=== PATIENT | male | born 1935 | race Caucasian/White ===

== ENCOUNTER 2018-11-29 16:19 | Inpatient (IN) | payer MEDICARE, MEDICAID ==
[~2018-11-29] VITALS: Ht 180.3 cm; Wt 0.5 kg
[~2018-11-29 16:19] MED LIST: LEXAPRO10 MG ORAL; RESTORIL7.5 MG ORAL; SINEMET 10-1001 EACH ORAL
[2018-11-29 19:03] LABS: BASOPHILS % (AUTO) 1.2 % (0.0-2.0); EOSINOPHILS % (AUTO) 1.1 % (0.0-3.0); HEMATOCRIT 37.1 % (42.0-52.0); HEMOGLOBIN 12.3 G/DL (14.2-18.0); LYMPHOCYTES % (AUTO) 17.1 % (20.0-45.0); MEAN CORPUSCULAR VOLUME 91 FL (80-99); MONOCYTES % (AUTO) 6.8 % (1.0-10.0); NEUTROPHILS % (AUTO) 73.8 % (45.0-75.0); PLATELET COUNT 161 K/UL (150-450); RED CELL DISTRIBUTION WIDTH 11.4 % (11.6-14.8)
[2018-11-29] MEDS: Levodopa/Carbidopa 25/100 tab ORAL SCH (19:21)
[2018-11-29 19:33] LABS: ALANINE AMINOTRANSFERASE 10 U/L (12-78); ALBUMIN 3.8 G/DL (3.4-5.0); ALBUMIN/GLOBULIN RATIO 1.4 (1.0-2.7); ALKALINE PHOSPHATASE 657 U/L (46-116); ANION GAP 8 mmol/L (5-15); ASPARTATE AMINO TRANSFERASE 19 U/L (15-37); BILIRUBIN,TOTAL 0.6 MG/DL (0.2-1.0); BLOOD UREA NITROGEN 24 mg/dL (7-18); CALCIUM 9.3 MG/DL (8.5-10.1); CARBON DIOXIDE 30 MMOL/L (21-32); CHLORIDE 106 MMOL/L (98-107); CREATININE 1.1 MG/DL (0.55-1.30); SODIUM 143 MMOL/L (136-145)
[2018-11-29 20:00] VITALS: BP 137/58
[2018-11-29] MEDS ORDERED: Atorvastatin 80mg tab ORAL SCH (21:00)
[2018-11-29] MEDS: Tamsulosin 0.4mg cap ORAL SCH (21:09)
[2018-11-30] VITALS: BP 158/75
[2018-11-30] MEDS ORDERED: LISINOPRIL20 MG ORAL (00:56)
[2018-11-30] MEDS ORDERED: LIPITOR20 MG ORAL (00:56)
[2018-11-30] MEDS ORDERED: LEXAPRO20 MG ORAL (00:56)
[2018-11-30] MEDS ORDERED: TEMAZEPAM30 MG ORAL (00:56)
[2018-11-30] MEDS ORDERED: BICALUTAMIDE50 MG ORAL (00:56)
[2018-11-30] MEDS ORDERED: TAMSULOSIN HCL0.4 MG ORAL (00:56)
[2018-11-30] MEDS ORDERED: SINEMET 25-1001 EAC1 ORAL (00:56)
--- NOTE | 2018-11-30 01:00 | Consultation ---
DATE OF CONSULTATION: 11/29/2018 CONSULTING PHYSICIAN: Jairon Cervantes M.D. REFERRING PHYSICIAN: Kamlesh Ribeiro M.D. REASON FOR CONSULTATION: Dehydration and hypotension in the setting of ischemic cardiomyopathy. HISTORY OF PRESENT ILLNESS: This is an 83-year-old male. He has a known history of ischemic heart disease with prior myocardial infarctions and coronary stents. He also has been declining in his health due to Parkinson disease. He was noted to have significant weight loss, very low blood pressure in the office yesterday, dizziness and unsteady gait. [id number] was contacted and evaluated the patient agreeing that acute care was indicated as the patient was unsafe at home. The patient has not had chest pain or shortness of breath, but has been dizzy and lightheaded. He admits to poor appetite and oral intake. He has had frequent falls. PAST MEDICAL HISTORY: Parkinson's disease, metastatic prostate cancer, hyperlipidemia, coronary artery disease, history of myocardial infarction, history of coronary stents, history of head trauma and subarachnoid bleed, cerebrovascular disease with hx of CVA, insomnia, pernicious anemia with B12 deficiency, and sinus node disease with bradycardia. ALLERGIES: Penicillin. MEDICATIONS: Reviewed and reconciled. SOCIAL HISTORY: He is an alcoholic, but has not had a drink for over 30 years. There is a very distant history of smoking. No history of substance abuse. REVIEW OF SYSTEMS: His most recent LDL was less than 100. There is no history of seizure or stroke. His Parkinson's has progressed limiting his function. There is no history of thyroid disorder or diabetes. His most recent echocardiogram revealed normal ejection fraction with concentric hypertrophy and mild degenerative valve disease. There is no history of abnormal blood clotting or asthma. He is hard of hearing. There is no history of visual disturbance. He has prostate cancer and he is on Lupron. His PSA has been 0 on this therapy. He does have diffuse bony mets and has chronically elevated alkaline phosphatase level. PHYSICAL EXAMINATION: VITAL SIGNS: Blood pressure at the doctor's office was 87/50, presently 137/58, heart rate 59, and respiratory rate 20. Afebrile. GENERAL: Temporal wasting. HEENT: Pale conjunctivae. Oropharynx clear. Mucous membranes dry. NECK: Supple. Jugular venous pressure normal. LUNGS: Clear. CARDIAC: Regular rhythm and rate. Normal S1, S2 with a 1/6 systolic apical murmur. ABDOMEN: Soft and nontender. EXTREMITIES: No edema. NEUROLOGIC: Reveals significant tremor, masklike facies and unsteady gait. LABORATORY DATA: Labs reviewed. IMPRESSION: 1. Hypovolemia. 2. Dehydration. 3. Orthostatic hypotension. 4. Parkinson's exacerbation. 5. Unsteady gait. 6. Recurring falls. 7. Sinus bradycardia. 8. Ischemic cardiomyopathy. 9. Chronic stable angina. 10. Prostate cancer. PLAN: 1. Continue anti-platelet therapy. 2. Check lipid panel and CK. 3. Cautiously hydrate. 4. Nutritional support. 5. Physical and occupational therapy assessment. 6. CAT scan of the brain to evaluate for possible bleed as a result of recurring falls. 7. Presently no indication for permanent pacemaker. Jairon Cervantes M.D. DR: ANTONIA JOB#: [id number] CC: LANDON
[2018-11-30 04:00] VITALS: BP 161/70
[2018-11-30 08:00] VITALS: BP 139/66
[2018-11-30] MEDS: Citalopram Hydrobromide 10mg Tab ORAL SCH (08:50)
[2018-11-30] MEDS: Levodopa/Carbidopa 25/100 tab ORAL SCH ×3 (08:50→18:47)
[2018-11-30 09:37] LABS: ANION GAP 8 mmol/L (5-15); BLOOD UREA NITROGEN 25 mg/dL (7-18); CALCIUM 9.1 MG/DL (8.5-10.1); CARBON DIOXIDE 26 MMOL/L (21-32); CHLORIDE 107 MMOL/L (98-107); CHOLESTEROL 120 MG/DL (< 200); CKMB 1.2 NG/ML (0.0-3.6); HDL CHOLESTEROL 60 MG/DL (40-60); POTASSIUM 4.3 MMOL/L (3.5-5.1); SODIUM 141 MMOL/L (136-145); TRIGLYCERIDES 53 MG/DL (30-150)
[2018-11-30 12:00] VITALS: BP 153/72
--- NOTE | 2018-11-30 13:04 | Diagnostic Imaging Report ---
Indication: Trauma, dizziness Technique: spiral acquisitions obtained through the brain. Angled axial and coronal 5 x 5 mm slices were reconstructed. No IV contrast utilized. Radiation dose was minimized using automated exposure control Total dose length product 1442.94 mGycm. CTDIvol(s) 70.38 mGy Comparison: 06/25/2018 FINDINGS: No acute hemorrhage or edema. No mass effect or midline shift. There is age-related enlargement of the ventricles and extra axial CSF spaces. There is periventricular deep white matter ischemic change. Normal john-white differentiation. There is a lacunar infarct in the left anterior basal ganglia region which may have been due to slight extent evident previously but is much larger. Other old bilateral basal ganglia lacunar infarcts are stable. Visualized orbits are unremarkable. There is minimal sinus mucosal disease. The mastoids are clear. Intact calvarium. Previously demonstrated left convexity subarachnoid blood, anterior interhemispheric subdural blood, and high right parietal cortical hemorrhage are no longer evident IMPRESSION: Chronic and age-related changes. Negative for acute intracranial bleed or mass effect Bilateral basal ganglia lacunar infarcts, one of which is new or increased from previous exam of May 2016 but not acute Previously reported intracranial hemorrhages are no longer evident. The CT scanner at [facility] is accredited by the [employer] and the scans are performed using protocols designed to limit radiation exposure to as low as reasonably achievable to attain images of sufficient resolution adequate for diagnostic evaluation
[2018-11-30 16:00] VITALS: BP 158/75
--- NOTE | 2018-11-30 17:15 | Progress Note ---
DATE: 11/30/2018 CARDIOLOGY PROGRESS NOTE: SUBJECTIVE: The patient has no new complaints. His appetite is fair. He did cooperate with the rehab evaluation. He still is somewhat lightheaded upon standing, but improved. OBJECTIVE: VITAL SIGNS: Blood pressure 139/66, pulse 55, respirations 18. LUNGS: Clear. CARDIAC: Regular. Normal S1, S2. ABDOMEN: Soft. EXTREMITIES: No edema. NEUROLOGIC: Pill rolling motion of hands. Increased rigidity noted. Masklike facies. IMAGING: CAT scan of the brain reveals old bilateral basal ganglia infarct. IMPRESSION: 1. Functional decline. 2. Hypovolemia. 3. Dehydration. 4. Failure to thrive. 5. Parkinson disease. 6. Cerebrovascular disease with bilateral basal ganglia infarct. 7. Ischemic cardiomyopathy. 8. History of coronary stent. 9. Protein-calorie malnutrition. 10. Asymptomatic sinus bradycardia. 11. Hyperlipidemia with low-range parameters on high-dose statin. PLAN: 1. Continue physical and occupational therapy. 2. Neuro evaluation to adjust Parkinson's medications. 3. Anti-platelet therapy. 4. Decrease dose of statin drug. 5. [facility] for [facility] rehabilitation prior to returning home. 6. Vitamin supplementation. 7. Nutritional support. 8. Taper off IV fluids as volume status normalizes. 9. Avoid tight blood pressure control. Jairon Cervantes M.D. DR: BASIL JOB#: [id number] CC:
[2018-11-30 20:00] VITALS: BP 180/85
[2018-11-30] MEDS: Tamsulosin 0.4mg cap ORAL SCH (20:58)
[2018-11-30] MEDS: Atorvastatin 20mg tab ORAL SCH (20:58)
--- NOTE | 2018-11-30 21:15 | Consultation ---
Consult Note Consult Note NEUROLOGY CONSULTATION: Full note dictated #[id number] 83 y/o, RH, CM with PH of Parkinson's disease, metastatic prostate cancer, dyslipidemia, coronary artery disease s/p myocardial infarction, coronary stents, head trauma with a subarachnoid bleed, pernicious anemia with B12 deficiency, and sinus node disease with bradycardia. He was hospitalized on 11/29/18 for dehydration and hypotension in the setting of ischemic cardiomyopathy. His PD was diagnosed ~ 1 year ago and is associated with a tremor and gait problems. ON EXAM: Disoriented to date. 3/3-0, 2/3- 1 & 3 Tremor (4-5 Hz) G 2/4 Rigidity G 1/4. Bradykinesia, Hypomimia, Hypophonia G 1/4 PS/PG G 2/4. IMPRESSION: PD - not optimally controlled on present regimen. Dehydration - treated. REC: Increase Sinemet dose to 25/100 (1.5 tabs q 7 AM, 12 Noon, 5 PM. Mobilize with PT Observe. Louis Sahni M.D., M.S.P.H. Louis Sahni MD Nov 30, 2018 21:15
[2018-11-30] MEDS: HydrALAZINE 10mg Tab ORAL PRN (22:34)
[2018-12-01] VITALS: BP 155/77
--- NOTE | 2018-12-01 02:45 | Consultation ---
DATE OF CONSULTATION: 11/30/2018 NEUROLOGY CONSULTATION CONSULTING PHYSICIAN: Louis Sahni M.D. REQUESTING PHYSICIAN: Jairon Cervantes M.D. HISTORY: Mr. Raza Cano is an 83-year-old, right-handed, gentleman, with a past history of Parkinson's disease, metastatic prostate cancer, dyslipidemia, coronary artery disease - status post myocardial infarction and percutaneous interventions with stent placement; head trauma with subarachnoid hemorrhage in the past, B12 deficiency associated with pernicious anemia, and sinus node disease associated with bradycardia. He was functioning relatively well at home until recently when he became increasingly less mobile, was feeling unwell and as a result of that, he was hospitalized on 11/29/2018 for dehydration and hypotension in the setting of ischemic cardiomyopathy. His parkinsonian symptoms were also noted to be worse. This consultation was requested by Dr. Cervantes to evaluate and manage the patient's Parkinson's disease. As per the patient, he started to have parkinsonian symptoms approximately a year ago. This was associated with tremor and some gait problems. He feels that both these problems are relatively well controlled on his present therapeutic regimen, but he still has significant symptoms. He denies any significant stiffness, problems with weakness on one side or the other, or numbness on one side or the other, but has noticed that his memory is not as sharp as it used to be. PAST MEDICAL HISTORY: Significant for Parkinson's disease, metastatic prostate cancer, dyslipidemia, coronary artery disease - status post myocardial infarction and stent placement; head trauma with a subarachnoid hemorrhage, pernicious anemia with B12 deficiency, and sinus node disease with bradycardia. FAMILY HISTORY: Nothing significant other than his mother having Parkinson's disease. PERSONAL HISTORY: Home: He lives alone. Work: He used to work as a operations dispatcher, he is now retired. Habits: He used to smoke and drink in the past, but stopped doing both almost 30 years ago. He denies use of any illicit drugs. MEDICATIONS: Present medications include atorvastatin, Celexa, Plavix, Flomax, Sinemet 25/100 - 1 tablet taken tid, and temazepam p.r.n. PHYSICAL EXAMINATION: GENERAL: He is a well-developed, well-nourished, pleasant gentleman, who is lying in bed, in no acute distress. VITAL SIGNS: Pulse 63 per minute, blood pressure 180/85 mmHg, respirations 21 per minute, and temperature 98.1 degrees Fahrenheit. HEAD: Normocephalic and atraumatic. EENT: Examination benign. NECK: No neck rigidity was observed. NEUROLOGICAL EXAMINATION: MENTAL STATUS EXAMINATION: He was awake and alert. He was oriented to person, place, and time except for the exact date. He thought it was 29th. He was able to recall 3/3 words immediately, but could only remember 2/3 words in 1 minute and 3 minutes even on the second trial. He was able to remember presidents, Trump through Thompson [employer]. His mathematical skills were minimally impaired. His visuospatial function was relatively good. SPEECH: He had no dysarthria. LANGUAGE: He had no aphasia. CRANIAL NERVE EXAMINATION: II: The visual mojica were intact on confrontation testing. III, IV & : The external ocular movements were full and the pupils 3 mm in diameter, equal, round, regular, and reactive to light. V: He had normal facial sensations, and the temporales, masseters, and pterygoids functioned normally. VII: He had normal facial expressions and no facial asymmetry. VIII: He was able to hear bilaterally and had no nystagmus. IX: The palate moved symmetrically on phonation. X: He had no hoarseness of voice. XI: The sternocleidomastoids and trapezii function normally. XII: The tongue was in the midline without any fasciculations or atrophy. MOTOR SYSTEM: The tone was increased in all four extremities with a mild degree of rigidity. Examination of muscle mass revealed some generalized muscle wasting. Examination of power revealed G 5/5 power in all muscle groups tested. SENSORY EXAMINATION: He had intact sensations to pinprick, light touch, and graphesthesia. COORDINATION: He performed well on [id number] and [id number] testing. Romberg test could not be tested because even with his eyes open when he was made to stand with his feet together, he was unsteady. REFLEXES: 1+ and bilaterally symmetrical at the biceps, triceps, brachioradialis, and knees, 0 at both ankles. The plantar responses were flexor bilaterally. STANCE: He stood with a stooped stance and needed support to stand up. GAIT: He walked with a stooped gait, which was parkinsonian in nature. He turned en block and had significant decrease in associated movements when he walked. ABNORMAL MOVEMENTS: Tremor (4-5 Hz): G 2/4 in the upper extremities. Rigidity: G 1/4. Bradykinesia, hypomimia, and hypophonia: G 1/4 Parkinsonian stance and parkinsonian gait: G 2/4. DIAGNOSTIC IMPRESSION: 1. Mr. Raza Cano is an 83-year-old, right-handed, gentleman, with a past history of multiple medical problems including Parkinson's disease, metastatic prostate cancer, dyslipidemia, coronary artery disease with a prior history of myocardial infarction and stent placement, head trauma with subarachnoid hemorrhage in the past, pernicious anemia with B12 deficiency, and sinus node disease with bradycardia, who was hospitalized on 11/29/2018 for dehydration and hypotension in the setting of ischemic cardiomyopathy. Since he has been in the hospital, he has improved. 2. On neurological examination, at this time, he is disoriented to the exact date. He has problems with recent and remote memory and has a parkinsonian syndrome characterized by tremor, rigidity, bradykinesia, hypomimia, hypophonia, a parkinsonian stance, and parkinsonian gait. 3. A CT scan of the brain without contrast reveals atrophy and some deep white matter changes with preferential involvement of the frontotemporal areas. 4. Laboratory data obtained thus far have revealed that the patient is mildly anemic with a hemoglobin of 12.3 G. He has a BUN elevated at 25. His alkaline phosphatase is elevated at 657. His BNP is elevated at 516. His vitamin B12 level, folate level, and TSH all within normal range. 5. The patient's history, neurological examination, imaging studies, and laboratory data are most compatible with Parkinson disease that is not optimally controlled on the present regimen. In addition, when he came in, he was significantly dehydrated, but he is now significantly better. RECOMMENDATIONS: 1. Agree with management thus far. 2. The patient's antiparkinsonian regimen will be changed to Sinemet 25/100, 1-1/2 tablets to be taken at 7 a.m., 12 noon, and 5 p.m. 3. The patient should be mobilized with the help of physical therapy. 4. The patient will be observed closely and depending on how he fares over the next day or so, further recommendations will be given. Thank you for entrusting me with the care of Mr. Cano. I shall follow him with you. Louis Sahni M.D., M.S.P.H. DR: JESUS MANUEL JOB#: [id number] MTDD
[2018-12-01 04:00] VITALS: BP 150/69
[2018-12-01] MEDS: Levodopa/Carbidopa 25/100 tab ORAL SCH ×3 (06:04→17:20)
--- NOTE | 2018-12-01 06:58 | General Progress Note ---
Assessment/Plan Problem List: (1) Subarachnoid hemorrhage ICD Codes: I60.9 - Nontraumatic subarachnoid hemorrhage, unspecified SNOMED: 111196981 (2) Subdural hemorrhage ICD Codes: I62.00 - Nontraumatic subdural hemorrhage, unspecified SNOMED: 16036598 (3) Failure to thrive SNOMED: 69942463 (4) Hypertensive urgency ICD Codes: I16.0 - Hypertensive urgency SNOMED: 764771531 Status: stable, progressing Assessment/Plan cont current rx adjust bp meds ivf encourage pos. parkinsons rx pt/ot Subjective ROS Limited/Unobtainable: No Constitutional: Reports: malaise, weakness HEENT: Reports: no symptoms Cardiovascular: Reports: no symptoms Respiratory: Reports: no symptoms Gastrointestinal/Abdominal: Reports: no symptoms Neurologic/Psychiatric: Reports: anxiety, tremors Endocrine: Reports: no symptoms Hematologic/Lymphatic: Reports: no symptoms Allergies: Coded Allergies: PENICILLINS (Verified Allergy, Unknown, 11/29/18) All Systems: reviewed and negative except above Subjective pt remains anxious and weak. +tremor. no fevers or chills. BP still high Objective Last 24 Hour Vital Signs Date Time Temp Pulse Resp B/P (MAP) Pulse Ox O2 Delivery O2 Flow Rate FiO2 12/01/18 04:00 97.3 56 20 150/69 (96) 97 12/01/18 00:00 97.9 84 20 155/77 (103) 96 11/30/18 22:34 180/85 11/30/18 21:00 Room Air Room Air 11/30/18 20:00 98.1 63 21 180/85 (116) 95 11/30/18 16:00 97.6 74 20 158/75 (102) 96 11/30/18 12:00 97.1 62 20 153/72 (99) 96 11/30/18 09:00 Room Air Room Air 11/30/18 08:00 98.8 55 18 139/66 (90) 96 Intake and Output 11/30/18 12/01/18 18:59 06:59 Intake Total 765 ml Output Total 600 ml 425 ml Balance 165 ml -425 ml Intake Oral 690 ml IV Total 75 ml Output Urine Total 600 ml 425 ml Height (Feet): 5 Height (Inches): 11.00 Weight (Pounds): 1 General Appearance: WD/WN, alert Neck: supple Cardiovascular: normal rate Respiratory/Chest: chest wall non-tender, lungs clear, normal breath sounds Edema: no edema noted Arm (L), no edema noted Arm (R), no edema noted Leg (L), no edema noted Leg (R), no edema noted Pedal (L), no edema noted Pedal (R), no edema noted Generalized Neurologic: communications systems engineer II-XII grossly normal, oriented x 3, responsive UomoKamlesh montano MD Dec 01, 2018 06:58
--- NOTE | 2018-12-01 07:15 | History and Physical Report ---
DATE OF ADMISSION: 11/29/2018 This is a visit for 11/30/2018. HISTORY OF PRESENT ILLNESS: The patient is a pleasant 83-year-old male, well known to me. He has a history of ischemic cardiomyopathy, status post stents. He has a history of severe Parkinson's disease, presented with complaints of failure to thrive. According to the patient, he has been weaker, more unsteady, and lightheaded. He has had several falls. He has had poor appetite and has had a notable loss of weight. Denies any fevers or chills. He has had no chest pain and no shortness of breath. Denies any melena or bright red blood per rectum. He has no cough. Because of continued weight loss and failure to thrive, he is admitted for further evaluation and care. PAST MEDICAL HISTORY: Significant for history of ischemic cardiomyopathy, history of coronary artery disease, history of stents, history of severe Parkinson's disease, history of stroke, B12 deficiency, and conduction system disease. PAST SURGICAL HISTORY: None. CURRENT MEDICATIONS: Reconciled and reviewed. ALLERGIES: Include penicillin. FAMILY HISTORY: Noncontributory. SOCIAL HISTORY: The patient is prior smoker and prior heavy drinker, but quit. No drugs. REVIEW OF SYSTEMS: GENERAL: No fevers or chills. HEENT: No headaches or visual changes. CARDIOPULMONARY: No chest pain or shortness of breath. Positive history of ischemic cardiomyopathy, status post stent. GASTROINTESTINAL: No nausea or vomiting. Positive anorexia. GENITOURINARY: No urgency or frequency. MUSCULOSKELETAL: No joint pain or swelling. NEUROLOGIC: No history of seizures. Positive history of severe Parkinson's disease. PHYSICAL EXAMINATION: VITAL SIGNS: Temperature 97 degrees, pulse 56, respirations 20, and blood pressure 158/75. GENERAL: The patient is well developed, in no apparent distress. HEART: Regular rate and rhythm. LUNGS: Clear. ABDOMEN: Soft, nontender, and nondistended. EXTREMITIES: Without clubbing, cyanosis, or edema. The patient has a coarse tremor noted. LABORATORY DATA: White count 7, hemoglobin 12, hematocrit 37, and platelets of 161,000. Sodium 143, potassium 4, and creatinine is 1.1. Alkaline phosphatase is 657. B12 level was greater than 2000. ASSESSMENT: This is a pleasant male with history of ischemic cardiomyopathy, hypertension, and Parkinson's disease, admitted with complaints of failure to thrive. PROBLEMS LIST: 1. Failure to thrive and weight loss. 2. Hypertensive urgency. 3. Parkinson's disease. 4. History of ischemic cardiomyopathy. 5. Conduction system disease. PLAN: 1. Gentle hydration. 2. Encourage p.o. 3. PT, OT evaluation. 4. Cardiology consultation. 5. Neuro consultation will be obtained. 6. The patient likely will need placement at the SNF for at least short-term rehab. Kamlesh Ribeiro M.D. DR: CINDY JOB#: [id number] CC:
[2018-12-01 08:00] VITALS: BP 161/76
[2018-12-01] MEDS: Citalopram Hydrobromide 10mg Tab ORAL SCH (08:21)
[2018-12-01] MEDS: Bicalutamide 50mg tab ORAL SCH (08:22)
[2018-12-01] MEDS: Losartan 25mg tab ORAL SCH (08:22)
[2018-12-01 10:35] LABS: APPEARANCE,URINE CLEAR; BILIRUBIN, URINE NEGATIVE (NEGATIVE); COLOR,URINE PALE YELLOW; GLUCOSE, URINE (UA) NEGATIVE (NEGATIVE); KETONES,URINE NEGATIVE (NEGATIVE); LEUKOCYTE ESTERASE ,URINE NEGATIVE (NEGATIVE); NITRITE,URINE NEGATIVE (NEGATIVE); PH,URINE 5 (4.5-8.0); PROTEIN,URINE NEGATIVE (NEGATIVE); UROBILINOGEN,URINE NORMAL MG/DL (0.0-1.0)
[2018-12-01 12:00] VITALS: BP 149/76
[2018-12-01 16:00] VITALS: BP 109/56
--- NOTE | 2018-12-01 17:20 | Neurology Progress Note ---
Interim History Interim History Interim History Mr. Cano feels better. He says that the tremor has been much better controlled today. However the medicine wears off in about 4 hours. He also did some walking earlier and was steadier on his feet. The mind is clear. The strength is good. He denies any new neurologic problems. Review of Systems Neuro Review of Systems Benign. Objective Physical Exam Last Vital Signs Date Time Temp Pulse Resp B/P (MAP) Pulse Ox O2 Delivery O2 Flow Rate FiO2 12/01/18 16:00 98.6 84 18 109/56 (73) 98 12/01/18 09:00 Room Air Room Air Laboratory Tests Test 12/01/18 09:40 Urine Color Pale yellow Urine Appearance Clear Urine pH 5 (4.5-8.0) Urine Specific [place] 1.015 (1.005-1.035) Urine Protein Negative (NEGATIVE) Urine Glucose (UA) Negative (NEGATIVE) Urine Ketones Negative (NEGATIVE) Urine Blood 1+ (NEGATIVE) H Urine Nitrite Negative (NEGATIVE) Urine Bilirubin Negative (NEGATIVE) Urine Urobilinogen Normal MG/DL (0.0-1.0) Urine Leukocyte Esterase Negative (NEGATIVE) Urine RBC 2-4 /HPF (0 - 0) H Urine WBC 0-2 /HPF (0 - 0) Urine Squamous Epithelial Cells Occasional /LPF Urine Bacteria Few /HPF (NONE) Neurologic Exam Objective PHYSICAL EXAMINATION: GENERAL: He is a well-developed, well-nourished, pleasant gentleman, who is lying in bed, in no acute distress. HEAD: Normocephalic and atraumatic. EENT: Examination benign. NECK: No neck rigidity was observed. NEUROLOGICAL EXAMINATION: MENTAL STATUS EXAMINATION: He was awake and alert. He was oriented to person, place, and time except for the exact date. He was able to recall 3/3 words immediately, but could only remember 2/3 words in 1 minute and 3 minutes even on the second trial. He was able to remember presidents, Trump through [employer] His mathematical skills were minimally impaired. His visuospatial function was relatively good. SPEECH: He had no dysarthria. LANGUAGE: He had no aphasia. CRANIAL NERVE EXAMINATION: II: The visual mojica were intact on confrontation testing. III, IV & : The external ocular movements were full and the pupils 3 mm in diameter, equal, round, regular, and reactive to light. V: He had normal facial sensations, and the temporales, masseters, and pterygoids functioned normally. VII: He had normal facial expressions and no facial asymmetry. VIII: He was able to hear bilaterally and had no nystagmus. IX: The palate moved symmetrically on phonation. X: He had no hoarseness of voice. XI: The sternocleidomastoids and trapezii function normally. XII: The tongue was in the midline without any fasciculations or atrophy. MOTOR SYSTEM: The tone was increased in all four extremities with a mild degree of rigidity. Examination of muscle mass revealed some generalized muscle wasting. Examination of power revealed G 5/5 power in all muscle groups tested. SENSORY EXAMINATION: He had intact sensations to pinprick, light touch, and graphesthesia. COORDINATION: He performed well on [id number] and [id number]-[id number] testing. Romberg test could not be tested because even with his eyes open when he was made to stand with his feet together, he was unsteady. REFLEXES: 1+ and bilaterally symmetrical at the biceps, triceps, brachioradialis, and knees, 0 at both ankles. The plantar responses were flexor bilaterally. STANCE: He stood with a stooped stance and needed support to stand up. GAIT: He walked with a stooped gait, which was parkinsonian in nature. He turned en block and had significant decrease in associated movements when he walked. ABNORMAL MOVEMENTS: Tremor (4-5 Hz): G 1/4 in the upper extremities. Rigidity: G Trace/4. Bradykinesia, hypomimia, and hypophonia: G 1/4 Parkinsonian stance and parkinsonian gait: G 1/4. Impression/Recommendations Diagnostic Impression 1. Mr. Raza Cano is an 83-year-old, right-handed, gentleman, with a past history of multiple medical problems including Parkinson's disease, metastatic prostate cancer, dyslipidemia, coronary artery disease with a prior history of myocardial infarction and stent placement, head trauma with subarachnoid hemorrhage in the past, pernicious anemia with B12 deficiency, and sinus node disease with bradycardia, who was hospitalized on 11/29/2018 for dehydration and hypotension in the setting of ischemic cardiomyopathy. Since he has been in the hospital, he has improved. 2. He feels better. He says that the tremor has been much better controlled today. However the medicine wears off in about 4 hours. He also did some walking earlier and was steadier on his feet. The mind is clear. The strength is good. He denies any new neurologic problems. 3. On neurological examination, at this time, he is disoriented to the exact date. He has problems with recent and remote memory and has a parkinsonian syndrome characterized by tremor, rigidity, bradykinesia, hypomimia, hypophonia , a parkinsonian stance, and parkinsonian gait. 4. A CT scan of the brain without contrast reveals atrophy and some deep white matter changes with preferential involvement of the frontotemporal areas. 5. Laboratory data obtained thus far have revealed that the patient is mildly anemic with a hemoglobin of 12.3 G. He has a BUN elevated at 25. His alkaline phosphatase is elevated at 657. His BNP is elevated at 516. His vitamin B12 level, folate level, and TSH all within normal range. 6. The patient's history, neurological examination, imaging studies, and laboratory data are most compatible with Parkinson disease that was not optimally controlled on his regimen. 7. In addition, when he came in, he was significantly dehydrated, but he is now significantly better. Recommendations 1. Continue present management. 2. Continue Sinemet 25/100, 1-1/2 tablets to be taken at 7 a.m., 12 noon, and 5 p.m. 3. Mobilize with the help of physical therapy. 4. Observe closely. Louis Sahni M.D., M.S.[facility]. Louis Sahni MD Dec 01, 2018 17:20
[2018-12-01] MEDS: Tamsulosin 0.4mg cap ORAL SCH (20:53)
[2018-12-01] MEDS: Atorvastatin 20mg tab ORAL SCH (20:53)
[2018-12-01 21:00] VITALS: BP 158/74
[2018-12-02] VITALS (7 sets, daily range): BP systolic 149–168; BP diastolic 54–85
[2018-12-02] MEDS: HydrALAZINE 10mg Tab ORAL PRN (01:13)
[2018-12-02] MEDS: Levodopa/Carbidopa 25/100 tab ORAL SCH ×2 (06:16→12:37)
[2018-12-02] MEDS: Citalopram Hydrobromide 10mg Tab ORAL SCH (08:37)
[2018-12-02] MEDS: Losartan 25mg tab ORAL SCH (08:38)
[2018-12-02] MEDS: Bicalutamide 50mg tab ORAL SCH (08:38)
[2018-12-02] MEDS ORDERED: LOSARTAN POTASS25 MG ORAL (10:33)
--- NOTE | 2018-12-02 13:35 | Neurology Progress Note ---
Interim History Interim History Interim History Mr. Cano feels better. He says that the tremor continues to be much better controlled. However the medicine continues to wear off in about 4 hours most of the time. He did some walking earlier and was steadier on his feet. The turning has also improved. The mind is clear. The strength is good. He denies any new neurologic problems. Review of Systems Neuro Review of Systems Benign. Objective Physical Exam Last Vital Signs Date Time Temp Pulse Resp B/P (MAP) Pulse Ox O2 Delivery O2 Flow Rate FiO2 12/02/18 12:00 98.2 59 16 149/57 (87) 96 12/02/18 09:00 Room Air Room Air Neurologic Exam Objective PHYSICAL EXAMINATION: GENERAL: He is a well-developed, well-nourished, pleasant gentleman, who is lying in bed, in no acute distress. HEAD: Normocephalic and atraumatic. EENT: Examination benign. NECK: No neck rigidity was observed. NEUROLOGICAL EXAMINATION: MENTAL STATUS EXAMINATION: He was awake and alert. He was oriented to person, place, and time except for the exact date. He was able to recall 3/3 words immediately, but could only remember 2/3 words in 1 minute and 3 minutes even on the second trial. He was able to remember presidents, Trump through [employer] His mathematical skills were minimally impaired. His visuospatial function was relatively good. SPEECH: He had no dysarthria. LANGUAGE: He had no aphasia. CRANIAL NERVE EXAMINATION: II: The visual mojica were intact on confrontation testing. III, IV & : The external ocular movements were full and the pupils 3 mm in diameter, equal, round, regular, and reactive to light. V: He had normal facial sensations, and the temporales, masseters, and pterygoids functioned normally. VII: He had normal facial expressions and no facial asymmetry. VIII: He was able to hear bilaterally and had no nystagmus. IX: The palate moved symmetrically on phonation. X: He had no hoarseness of voice. XI: The sternocleidomastoids and trapezii function normally. XII: The tongue was in the midline without any fasciculations or atrophy. MOTOR SYSTEM: The tone was increased in all four extremities with a mild degree of rigidity. Examination of muscle mass revealed some generalized muscle wasting. Examination of power revealed G 5/5 power in all muscle groups tested. SENSORY EXAMINATION: He had intact sensations to pinprick, light touch, and graphesthesia. COORDINATION: He performed well on [id number] and vvoi-br-zvrc testing. Romberg test could not be tested because even with his eyes open when he was made to stand with his feet together, he was unsteady. REFLEXES: 1+ and bilaterally symmetrical at the biceps, triceps, brachioradialis, and knees, 0 at both ankles. The plantar responses were flexor bilaterally. STANCE: He stood with a stooped stance and needed support to stand up. GAIT: He walked with a stooped gait, which was parkinsonian in nature. He turned en block and had significant decrease in associated movements when he walked. ABNORMAL MOVEMENTS: Tremor (4-5 Hz): G 1/4 in the upper extremities. Rigidity: G Trace/4. Bradykinesia, hypomimia, and hypophonia: G 1/4 Parkinsonian stance and parkinsonian gait: G 1/4. Impression/Recommendations Diagnostic Impression 1. Mr. Raza Cano is an 83-year-old, right-handed, gentleman, with a past history of multiple medical problems including Parkinson's disease, metastatic prostate cancer, dyslipidemia, coronary artery disease with a prior history of myocardial infarction and stent placement, head trauma with subarachnoid hemorrhage in the past, pernicious anemia with B12 deficiency, and sinus node disease with bradycardia, who was hospitalized on 11/29/2018 for dehydration and hypotension in the setting of ischemic cardiomyopathy. Since he has been in the hospital, he has improved. 2. He feels better. He says that the tremor continues to be much better controlled. However the medicine continues to wear off in about 4 hours most of the time. He did some walking earlier and was steadier on his feet. The turning has also improved. The mind is clear. The strength is good. He denies any new neurologic problems. 3. On neurological examination, at this time, he is disoriented to the exact date. He has problems with recent and remote memory and has a parkinsonian syndrome characterized by tremor, rigidity, bradykinesia, hypomimia, hypophonia , a parkinsonian stance, and parkinsonian gait - his parkinsonian signs are better. 4. A CT scan of the brain without contrast reveals atrophy and some deep white matter changes with preferential involvement of the frontotemporal areas. 5. Laboratory data obtained thus far have revealed that the patient is mildly anemic with a hemoglobin of 12.3 G. He has a BUN elevated at 25. His alkaline phosphatase is elevated at 657. His BNP is elevated at 516. His vitamin B12 level, folate level, and TSH all within normal range. 6. The patient's history, neurological examination, imaging studies, and laboratory data are most compatible with Parkinson disease that was not optimally controlled on his regimen. His symptoms and signs are better but the medicine seems to wear off in 4 hours. 7. He was significantly dehydrated when he came in but he is now significantly better. Recommendations 1. Continue present management. 2. Increase Sinemet 25/100, 1-1/2 tablets to be taken at 7 am, 11 am, 3pm and 7 pm. 3. Mobilize with the help of physical therapy. 4. Observe closely. Louis Sahni M.D., M[facility]S.[facility]. Louis Sahni MD Dec 02, 2018 13:35
[2018-12-02] MEDS ORDERED: Levodopa/Carbidopa 25/100 tab ORAL SCH (17:00)
--- NOTE | 2018-12-03 03:00 | Discharge Summary ---
DATE OF ADMISSION: 11/29/2018 DATE OF DISCHARGE: 12/02/2018 ADMISSION DIAGNOSES: 1. Failure to thrive. 2. Parkinson disease. 3. Multiple falls. 4. Toxic metabolic encephalopathy. 5. Dehydration. 6. Acute on chronic renal failure. 7. History of ischemic cardiomyopathy. DISCHARGE DIAGNOSES: 1. Failure to thrive. 2. Parkinson disease. 3. Multiple falls. 4. Toxic metabolic encephalopathy. 5. Dehydration. 6. Acute on chronic renal failure. 7. History of ischemic cardiomyopathy. HOSPITAL COURSE: The patient was admitted with failure to thrive, generalized weakness, and hypertensive urgency. He was cautiously hydrated. Antihypertensive regimen was adjusted by his source water protection specialist. He was continued on his Parkinson's medications. He was too weak to go home and requested placement in a short-term [facility]dc facility or rehabilitation. DISCHARGE MEDICATIONS: Please see discharge list for discharge medications. DIET: Cardiac diet. ACTIVITY: Ad-keegan. FOLLOWUP: The patient is to follow up in one to two days at the [facility]dc facility. Kamlesh Ribeiro M.D. DR: DUSTY JOB#: [id number] CC:
== END 2018-12-02 17:50 | DRG 640 ==
LOC: 4E 16:32
DX: E86.0 Dehydration (principal); G93.41 Metabolic encephalopathy; N17.9 Acute kidney failure, unspecified; E86.1 Hypovolemia; C61 Malignant neoplasm of prostate; G20 Parkinson's disease; I25.5 Ischemic cardiomyopathy; I95.1 Orthostatic hypotension; I25.2 Old myocardial infarction; R29.6 Repeated falls; E78.5 Hyperlipidemia, unspecified; R62.7 Adult failure to thrive; R00.1 Bradycardia, unspecified; I16.0 Hypertensive urgency; I12.9 Hypertensive chronic kidney disease with stage 1 through stage 4 chronic kidney disease, or unspecified chronic kidney disease; N18.9 Chronic kidney disease, unspecified; Z88.0 Allergy status to penicillin; Z86.73 Personal history of transient ischemic attack (TIA), and cerebral infarction without residual deficits; Z87.891 Personal history of nicotine dependence; I25.118 Atherosclerotic heart disease of native coronary artery with other forms of angina pectoris; Z95.5 Presence of coronary angioplasty implant and graft
CPT/HCPCS: 36415; 70450; 80048; 80053; 80061; 81003; 82306; 82553; 82607; 82746; 83880; 84153; 84443; 85025; 87086